=== PATIENT | female | born 1995 | race Caucasian/White ===

== ENCOUNTER → 2019-12-02 09:08 | Outpatient (CLI) | payer OTHER, SELFPAY ==
--- NOTE | 2019-12-02 | DI.US.S_ITS ---
PROCEDURE: US OB >= 14 WEEKS FETUS INDICATIONS: ANATOMY OUTSIDE/PRIOR DATING DATA: Last menstrual period (LMP): 07/12/19. LMP-based estimated date of delivery (ANAYA): 04/17/20. First dating scan (date and location): This study. Estimated date of delivery (ANAYA) from first dating scan: 04/20/20. TECHNIQUE: Real-time scanning was performed of the fetus, with image documentation and biometric measurements. Endovaginal scanning: Not needed COMPARISON: None. FINDINGS: General: A single living intrauterine gestation is present. Presentation: Breech. Placenta: Placental position is anterior, without previa. Amniotic fluid index: 14.9 cm, normal range is 5-24 cm. heart rate: 162 beats per minute. Maternal cervical canal: 5.0 cm long. Normal lower limit is 2.5 cm. biometrics: Biparietal diameter: 4.6 cm, 19 weeks 5 days Head circumference: 17.6 cm, 20 weeks 1 day Abdominal circumference: 15.9 cm, 21 weeks 0 days Femur length: 3.0 cm, 19 weeks 2 days Estimated gestational age from initial scan: not applicable. Composite gestational age from present scan: 20 weeks 0 days Estimated weight and percentile: 337 g, 32nd percentile Measurement variability for biometric dating: +/- 7 days from 14 weeks to 15 weeks 6 days gestation, +/- 10 days from 16 weeks to 21 weeks 6 days gestation, +/- 2 weeks from 22 weeks to 27 weeks 6 days gestation, +/- 3 weeks for 28 weeks gestation or later. weight reference: 4500 g or EFW >90/95% is considered macrosomia or large for gestational age. EFW <10% is small for gestational age. EFW 5% or less is considered intra-uterine growth restriction. Anatomic survey: Neuro: Ventricles are non-dilated at less than 10 mm. Cisterna magna is normal at 3-11 mm. Cerebellum is normal in size and morphology. Nuchal skin fold: Normal at less than 6 mm between 14-21 weeks gestational age. Face: Nose and lips, facial profile are normal. Spine: No evidence for spina bifida. Heart: 4-chambered heart is present, with normal ventricular outflow tracts. Diaphragm: Diaphragm is intact. Stomach: Left-sided stomach is present. Kidneys: No hydronephrosis. Normal is less than 5 mm in 2nd trimester, less than 7 mm in 3rd trimester. Cord: 3-vessel cord has orthotopic insertion. Bladder: Normal in size. Extremities: All 4 extremities identified. IMPRESSION: Breech presentation, 20 weeks 0 day gestational age with the delivery projected to be centered on 04/20/20. No anomaly seen. Dictated by: Buster Subramanian M.D. on 12/03/2019 at 10:37 Approved by: Buster Subramanian M.D. on 12/03/2019 at 10:40
== END ==
PROVIDERS: Referring Provider Nurse Practitioner Obstetrics & Gynecology; Visit Provider Nurse Practitioner Obstetrics & Gynecology
DX: Z36.89 Encounter for other specified antenatal screening (principal); Z3A.20 20 weeks gestation of pregnancy
CPT/HCPCS: 76801; 76811

== ENCOUNTER 2020-03-25 06:58 | Observation (INO) | payer OTHER, SELFPAY ==
[2020-03-25] MEDS: TERBUTALINE 1 MG/ML VIAL 0.25 MG SUBCUT (07:35)
--- NOTE | 2020-03-25 08:31 | PM.PROC.1 ---
Procedures Date/Time Date of procedure: 03/25/20 Time of procedure: 07:40 General Procedure description: Attempt at external cephalic version. Patient is a 24-year-old 1 para 0 EDC 04/17/20 at 36 weeks with known persistent breech presentation. The patient comes in for attempt at external cephalic version. Consent form was reviewed with the patient and signed. Risk of distress requiring emergency , rupture membranes or onset of labor that might require delivery, abruption that might require delivery. The patient had a reactive nonstress test and IV started. She was given 0.25 mg subcu terbutaline. Ultrasound confirmed the breech presentation with an anterior placenta and adequate but decreased fluid. Attempt was made twice to turn the baby without success. Decision was made to stop. Patient was monitored for 1 hour and heart tones were category 1. She was discharged home. She will be scheduled for a primary . Complications: none
== END 2020-03-25 09:00 | disposition home or self-care (01) ==
PROVIDERS: Admitting Provider Specialist; Referring Provider Specialist; Visit Provider Specialist
DX: O32.1XX0 Maternal care for breech presentation, not applicable or unspecified (principal); Z3A.36 36 weeks gestation of pregnancy
CPT/HCPCS: 59025; 59050; 59412; 76815; 96372; G0378; G0379

== ENCOUNTER → 2020-04-07 08:27 | Outpatient (CLI) | payer OTHER, SELFPAY ==
[2020-04-08 09:33] LABS: COVID19 Sendout Not Detected (Not Detect)
== END ==
PROVIDERS: Visit Provider Physician Assistant
DX: Z11.59 Encounter for screening for other viral diseases (principal)
CPT/HCPCS: 87635

== ENCOUNTER 2020-04-10 05:40 | Inpatient (IN) | payer OTHER, SELFPAY ==
[2020-04-10] MEDS: LACTATED RINGERS 1,000 ML 100 ML IV ×5 (06:30→20:06)
[2020-04-10 06:33] LABS: Add Manual Diff / Slide Review NO; Basophils Absolute Auto 0 /uL (0-100); Basophils Percent Auto 0.4 % (0-2); Eosinophils Absolute Auto 100 /uL (0-450); Eosinophils Percent Auto 0.6 % (2-4); Hemoglobin 12.1 g/dL (12.0-16.0); Lymphocytes Absolute Auto 2600 /uL (1100-4500); Lymphocytes Percent Auto 22.5 % (25-40); Mean Corpuscular HGB Conc 33.7 % (30-36); Mean Corpuscular Hemoglobin 33.1 PG (26-34); Mean Corpuscular Volume 98.2 fL (80-100); Monocytes Absolute Auto 900 /uL (0-900); Monocytes Percent Auto 7.5 % (3-14); Neutrophils Absolute Auto 7900 /uL (1500-7000); Platelet Count 152 X10^3/uL (150-400); Red Blood Cell Count 3.67 X10^6/uL (4.0-5.2); Red Cell Distribution Width 12.8 % (11.6-14.8); White Blood Cell Count 11.4 X10^3/uL (4.5-11.0)
[2020-04-10] MEDS: CITRIC ACID/SODIUM CITRATE 15 ML SOLUTION 30 ML PO (07:13)
[2020-04-10] MEDS: ACETAMINOPHEN 325 MG TABLET 975 MG PO (07:13)
--- NOTE | 2020-04-10 07:17 | SUR.OPER ---
Supine on Padded OR bed, head on pillow, safety belt at thigh, arms secured on padded arm boards at <90 degrees abduction. Bump under right buttock. Legs uncrossed with pillow under knees, gel pad to heels, tape over blanket to lower legs.
--- NOTE | 2020-04-10 07:18 | PM.OBHP.1 ---
OB HPI Date/Time Date of admission: 04/10/20 Date Patient Seen: 04/10/20 Time Patient Seen: 07:00 History of Present Condition Chief complaint: Delivery : 1 Para: 0 Estimated Date of Delivery: 04/17/20 Estimated Gestational Age (weeks): 39 Narrative: Vianey Mendoza is a 24 year old female @ 39 weeks her for primary for breech lie. Uncomplicated care w/ CNM. Unsuccessful ECV @ 36 weeks. GBS bacteriuria in early . Indications Operative indications ( section): breech presentation History of Present care: good care Dating criteria: LMP confirmed by 1st trimester US Ultrasounds: normal mid trimester US Obstetrical complications: none Medical complications: none Preadmission Labs Blood type: A (+) positive -: Antibody screen: negative, GBS status: positive, HBsAG: negative, HIV: negative and RPR/VDLR: negative -: Chlamydia screen: not detected and Gonorrhea screen: not detected -: Rubella: not immune HCT: 36.8 HCAB: negative PAP: Normal 1 hr GTT: 96 Prior (ies) History: none Evaluation Evaluation Laboratory results: Laboratory Tests 04/10/20 06:20 WBC 11.4 H RBC 3.67 L Hgb 12.1 Hct 36.0 MCV 98.2 MCH 33.1 MCHC 33.7 RDW 12.8 Plt Count 152 Neut % (Auto) 69.0 Lymph % (Auto) 22.5 L [place] % (Auto) 7.5 Eos % (Auto) 0.6 L Baso % (Auto) 0.4 Neut # (Auto) 7900 H Lymph # (Auto) 2600 [place] # (Auto) 900 Eos # (Auto) 100 Baso # (Auto) 0 PFSH Medical History (Updated 04/10/20 @ 07:27 by Mely Hernandez CNM) Anxiety (Acute) Social History (Updated 04/10/20 @ 07:28 by Mely Hernandez CNM) marital status: unmarried,living together household members: significant other lives independently: Yes caregiver/support person: No education level: middle school current occupational exposures/hazards: No britney/baptism: Christianity Meds Home Medications and Allergies Allergies Allergy/AdvReac Type Severity Reaction Status Date / Time No Known Drug Allergies Allergy Verified 04/10/20 07:10 Review of Systems Review of Systems ROS: Yes All systems reviewed with the patient and are negative except as otherwise documented Exam Vital Signs (past 8 hours): HR 85bpm, BP 134/83, T36.3C Temporal Resp Effort & Inspection: normal respiratory effort Auscultation: clear to auscultation bilaterally Cardio Rate: regular rate Rhythm: regular rhythm Heart Sounds: S1 normal and S2 normal Presentation: full/complete breech Estimated Weight (lbs): 7 Psych Appearance: grossly normal Speech and Movement: speech and movement normal Affect: normal affect Attitude: cooperative Thought Process: normal Objective Labs Result Diagrams: 04/10/20 06:20 Labs: Laboratory Results - last 24 hr 04/10/20 06:20 WBC 11.4 H RBC 3.67 L Hgb 12.1 Hct 36.0 MCV 98.2 MCH 33.1 MCHC 33.7 RDW 12.8 Plt Count 152 Neut % (Auto) 69.0 Lymph % (Auto) 22.5 L [place] % (Auto) 7.5 Eos % (Auto) 0.6 L Baso % (Auto) 0.4 Neut # (Auto) 7900 H Lymph # (Auto) 2600 [place] # (Auto) 900 Eos # (Auto) 100 Baso # (Auto) 0 Assessment and Plan Assessment and Plan Assessment and Plan narrative: Verified persistent breech presentation by US. Informed consent for primary obtained. Admit, routine pre-operative orders. Complete care by /FMA. Anticipate 48 hour hospital stay. Time Spent with Patient Total time spent with greater than 50% in coordination of care (as documented) at patient's floor/unit and/or counseling patient:: 15-24 minutes
--- NOTE | 2020-04-10 07:33 | PM.PREOP ---
Pre-operative Note COVID-19 COVID-19 status: Negative Result date/Date tested (Pos, Neg/Pending): 04/07/20 Interval Note History & Physical reviewed/Exam performed by Physician: Yes Changes to H&P: No
[2020-04-10] MEDS: CEFAZOLIN 2 GM/100 ML FROZ.PIGGY IV (08:00)
--- NOTE | 2020-04-10 08:11 | SUR.OPER ---
Viable female delivered at 08:10. Cord blood vials x2 and placenta sent with L&D RN.
--- NOTE | 2020-04-10 08:37 | P.PCN_ITS ---
Procedures Date/Time Date of procedure: 04/10/20 Time of procedure: 08:10 General Procedure description: Weapons Officer [employer] Documentation I assisted the OB information systems professor in the section for this patient. My responsibilities included retracting and suctioning, providing fundal pressure during delivery and following with suture during closure. Please see the OB's note for details of the surgery. Complications: none
[2020-04-10 08:50] VITALS: BP 99/57; PULSE 75; RESP 12; TEMP 36.2; O2SAT 98
[2020-04-10 08:56] VITALS: BP 117/66; PULSE 71; RESP 11; O2SAT 98
--- NOTE | 2020-04-10 08:56 | P.OP_ITS ---
Operative Date/Time/Diagnoses Date of procedure: 04/10/20 Time of procedure: 08:56 Pre-op diagnosis: Breech presentation at 39 weeks Post-op diagnosis: same Procedure & Clinicians Procedure: Primary low-transverse section Same procedure as scheduled: Yes Indications: Breech presentation at 39 weeks and failed version at 36 weeks Surgeon: Giovanna Fenton Manager Bilingual: Mely Hernandez Click Yes if Unassisted: No Anesthesia Type: Spinal Operative Notes Findings: Normal tubes, ovaries, uterus. Viable female infant with Apgars of 8 and 9, weighing 2888 g, 6 lb 5 oz Closure Type: primary Specimen(s): none sent Applied: catheter (Coleman) Estimated Blood Loss (mL): 200 Blood products transfused: none Procedure in detail: The patient was brought to the operating room where she underwent a spinal for anesthesia. She was placed in a supine position with a left lateral tilt. A Coleman catheter was placed. Pulsatile stockings were placed and functional throughout the case. 2 g of Ancef were given IV prior to the incision. Warming was in place. The patient was prepped and draped in usual sterile fashion. A low transverse incision was made with a scalpel and the incision was carried down to the fascial layer which was incised transversely with scissors. The midline attachments are superiorly and inferiorly. Some bleeding was controlled Bovie. The rectus muscles were in the midline and the peritoneal incision was made with no damage to internal structures. The peritoneum was incised and superiorly and inferiorly. Bladder blade was placed and a bladder flap was developed and the bladder held away from the lower uterine segment. An incision was made in the uterus with the scalpel and the incision was extended with stretching. The fetus with fundal pressure was delivered until the legs were released from the abdomen. The was held with a towel and rotated allowing removal of the arms. The head of was delivered easily after. The infant was bulb suctioned for clear fluid and handed off to the warmer. Cord blood was collected. The placenta delivered spontaneously with traction. The uterus was cleaned with clean laps. The uterine incision was closed in 2 layers of 0 chromic suture the first a running locking layer the second an imbricating layer. The bladder peritoneum was repaired with 2-0 Vicryl suture. The gutters were cleaned of any remaining fluids and ovaries and tubes were observed to be normal. Adequate hemostasis was noted. The perineum was closed with 2-0 Vicryl suture. The fascia layer was closed with 0 Vicryl suture with 2 stitches. The incision was irrigated and adequate hemostasis noted. The incision was closed with interrupted 3-0 Vicryl sutures and then a subcuticular stitch of 4-0 Vicryl suture. Steri-Strips were placed. The uterus was massaged to remove any clots. The patient went to recovery room in good condition. Counts of instruments and sponges were correct. Complications: none Post-operative Condition: stable Disposition: other ( Center) Plan for aftercare: Routine post section
[2020-04-10 09:00] VITALS: BP 121/63; PULSE 76; RESP 14; O2SAT 98
[2020-04-10 09:05] VITALS: BP 119/69; PULSE 69; RESP 11; O2SAT 98
--- NOTE | 2020-04-10 09:07 | SUR.PHASEI ---
Report called to Heidi
[2020-04-10 09:11] VITALS: BP 136/83
--- NOTE | 2020-04-10 09:19 | SUR.PHASEI ---
Patient transferred to the center. Report given to Heidi. VS checked with RN. Pad and dressing checked. Condition stable. IV saline locked. Coleman patent.
[2020-04-10] MEDS: KETOROLAC 30 MG/ML VIAL IV ×2 (14:06→20:06)
[2020-04-11] MEDS: KETOROLAC 30 MG/ML VIAL IV (02:12)
[2020-04-11 05:51] LABS: Add Manual Diff / Slide Review NO; Basophils Absolute Auto 100 /uL (0-100); Basophils Percent Auto 0.7 % (0-2); Eosinophils Absolute Auto 0 /uL (0-450); Eosinophils Percent Auto 0.5 % (2-4); Hematocrit 31.4 % (36-46); Hemoglobin 10.7 g/dL (12.0-16.0); Lymphocytes Absolute Auto 2200 /uL (1100-4500); Lymphocytes Percent Auto 22.5 % (25-40); Mean Corpuscular Hemoglobin 33.6 PG (26-34); Monocytes Absolute Auto 600 /uL (0-900); Monocytes Percent Auto 6.6 % (3-14); Neutrophils Absolute Auto 6800 /uL (1500-7000); Neutrophils Percent Auto 69.7 % (50-75); Platelet Count 107 X10^3/uL (150-400); Red Blood Cell Count 3.18 X10^6/uL (4.0-5.2); Red Cell Distribution Width 12.8 % (11.6-14.8); White Blood Cell Count 9.8 X10^3/uL (4.5-11.0)
--- NOTE | 2020-04-11 08:45 | PM.OBPN.1 ---
Subjective - OB Subjective Patient comments: no complaints, pain well controlled and tolerating diet baby status: doing well and nursing well feeding status: exclusively breast feeding Date Patient Seen: 04/11/20 Time Patient Seen: 08:45 Interval history: Postoperative day 1 primary section for breech presentation. Patient denies headaches, scotomata, epigastric pain. She has not tried to get out of bed yet. She denies any pain. Exam Vital Signs (past 8 hours): Blood pressure 126/75, pulse of 83, temperature 97.7? Oxygen Delivery Method Room Air Narrative Exam Narrative: Abdomen is soft, nontender. Uterus is firm, at U, nontender. Dressing is clean, dry, intact. Mild lochia. Extremities with trace edema and nontender. Objective Labs Result Diagrams: 04/11/20 05:40 Labs: Laboratory Results - last 24 hr 04/11/20 05:40 WBC 9.8 RBC 3.18 L Hgb 10.7 L Hct 31.4 L MCV 99.0 MCH 33.6 MCHC 34.0 RDW 12.8 Plt Count 107 L Neut % (Auto) 69.7 Lymph % (Auto) 22.5 L [place] % (Auto) 6.6 Eos % (Auto) 0.5 L Baso % (Auto) 0.7 Neut # (Auto) 6800 Lymph # (Auto) 2200 [place] # (Auto) 600 Eos # (Auto) 0 Baso # (Auto) 100 Assessment & Plan Assessment and Plan (1) Delivery by section for breech presentation: Status: Acute Plan day: 1 plan OB: routine postop care Time Spent With Patient Time: Total time spent is greater than 50% in coordination of care (as documented) at patient's floor/unit and/or counseling patient: Time with patient: less than 15 minutes
[2020-04-11] MEDS: FERROUS GLUCONATE 324 MG TABLET PO (10:07)
[2020-04-11] MEDS: IBUPROFEN 600 MG TABLET PO ×2 (10:07→16:01)
[2020-04-11] MEDS: PRENATAL VIT,CALC/IRON/FOLIC 1 TABLET 1 TAB PO (10:07)
[2020-04-11] MEDS: LANOLIN OINT 7 GM 1 APPLIC TOP (10:08)
[2020-04-11] MEDS: DOCUSATE 250 MG CAPSULE PO (10:08)
--- NOTE | 2020-04-11 12:40 | PM.OBDS.1 ---
Discharge Providers Provider Date of admission: 04/10/20 05:40 Discharge Date: 04/11/20 Consults: 04/10/20 09:30 Consult to Manufacturing Clerk Routine Comment: Discharge provider: Jayda Patrick MD Summary Hospital Course Date Patient Seen: 04/11/20 Time Patient Seen: 11:00 Procedures: Primary Hospital Course: The pt presented for scheduled primary for breech presentation with failed version. The pt underwent surgery without any complications, and delivered a viable baby girl on 04/10/20. , there were no complications. At the time of discharge she was voiding, ambulating, and passing flatus without difficulty. Her lochia was decreasing appropriately. Her pain was well controlled. She was with good latch. She will f/u with Dr Fenton in one week for incision check, and Mely Hernandez CNM, for regular check. Peripartum Data Infant Delivery Method: Section complications: none [place] 1: Gender: Female Disposition of : home Discharge Diagnosis (1) Delivery by section for breech presentation: Status: Acute Status at Discharge Cognitive/behavioral status at discharge: oriented Functional status at discharge: independent ambulation Overall status at discharge: patient is progressing back to baseline Time Spent with Patient Time attestation: Total time spent providing and/or coordinating discharge services: Objective Labs Result Diagrams: 04/11/20 05:40 Labs: Laboratory Results - last 24 hr 04/11/20 05:40 WBC 9.8 RBC 3.18 L Hgb 10.7 L Hct 31.4 L MCV 99.0 MCH 33.6 MCHC 34.0 RDW 12.8 Plt Count 107 L Neut % (Auto) 69.7 Lymph % (Auto) 22.5 L [place] % (Auto) 6.6 Eos % (Auto) 0.5 L Baso % (Auto) 0.7 Neut # (Auto) 6800 Lymph # (Auto) 2200 [place] # (Auto) 600 Eos # (Auto) 0 Baso # (Auto) 100 Exam Vital Signs (past 8 hours): Oxygen Delivery Method Room Air Discharge Plan Discharge Plan Patient Disposition: Home Discharge orders & Medications Prescriptions: New oxycodone-acetaminophen 5-325 mg Tablet 2 tab PO Q4HR PRN (Reason: Pain, Severe (7-10)) Qty: 10 RF: 0 ibuprofen 600 mg Tablet 600 mg PO Q6HR PRN (Reason: Fever/Mild Pain (1-3)) Qty: 30 RF: 0 docusate sodium 250 mg Capsule 250 mg PO DAILY 30 Days RF: 0 ferrous gluconate 324 mg (38 mg iron) Tablet 324 mg PO DAILY Qty: 30 RF: 0 Prenatabs Rx 29 mg iron- 1 mg Tablet 1 tab PO DAILY Qty: 30 RF: 0 Follow up/Referrals: Giovanna Fenton MD [Physician] - 1 Week (please call Dr. Fenton's office on Monday am to schedule an incision check [phone]) Mely Hernandez CNM [Advanced Principal Java Software Engineer] - 6 Weeks Diet/Activity/Treatments Diet: Regular and Feed on demand Skin/Wound/Dressing Care Report to your healthcare provider any signs of infection, such as:: chills, fever, increased pain, unusual drainage and unusual redness Visit Report/Discharge Packet Instructions: DI for Stand Alone Forms: Discharge: Care Visit Report Forms: Patient Portal/API, Stroke Signs & Symptoms
== END 2020-04-11 15:05 | disposition home or self-care (01) | DRG 788 ==
PROVIDERS: Admitting Provider Anesthesiology; Referring Provider Specialist; Visit Provider Specialist
PROC: 10D00Z1 Extraction of Products of Conception, Low, Open Approach (ICD-10-PCS; CPT 59514; principal; 2020-04-10 07:45)
DX: O64.1XX0 Obstructed labor due to breech presentation, not applicable or unspecified (principal); Z3A.39 39 weeks gestation of pregnancy; Z37.0 Single live birth; O99.824 Streptococcus B carrier state complicating childbirth
CPT/HCPCS: 36415; 59050; 59514; 76815; 85025; 86850; 86900; 86901; J0690; J1885; J2274; J2590